=== PATIENT | female | born 1955 | race Caucasian/White ===

== ENCOUNTER 2019-06-06 09:10 | Outpatient (CLI) | payer MEDICARE, SELFPAY ==
[2019-06-06 10:36] LABS: Hemoglobin A1C 6.5 % (<5.7)
[2019-06-06 10:40] LABS: Alanine Aminotransferase 19 U/L (4-35); Albumin Level 4.4 g/dL (3.5-5.1); Alkaline Phosphatase 47 U/L (38-126); Aspartate Amino Transferase 21 U/L (14-36); Bilirubin,Total 0.3 mg/dL (0.2-1.3); Blood Urea Nitrogen 19 mg/dL (7-17); Calcium 9.3 mg/dL (8.4-10.2); Carbon Dioxide 30 mmol/L (22-30); Chloride 100 mmol/L (98-107); Cholesterol 253 mg/dL (0-200); Estimated Glomerular Filt Rate 50; Glucose 123 mg/dL (65-105); HDL Direct 47 mg/dL; Potassium 3.9 mmol/L (3.4-5.0); Sodium 139 mmol/L (137-145); Triglycerides 142 mg/dL (<150); Uric Acid 5.4 mg/dL (2.5-7.5)
[2019-06-06 10:50] LABS: LDL Cholesterol Direct 171 mg/dL
[2019-06-06 10:51] LABS: Creatinine Urine 122.5 mg/dL
[2019-06-06 11:09] LABS: Thyroid Stimulating Hormone 0.796 uIU/mL (0.465-4.680); Vitamin D 25 Hydroxy 48.5 ng/mL
[2019-06-06 11:20] LABS: MALB Creatinine Ratio < 4.9 mg/g (0-30); Microalbumin Urine Random < 6.0 mg/L (0-16.7)
== END 2019-06-06 09:11 | disposition home or self-care (01) ==
LOC: ANHLAB 09:15
PROVIDERS: PCP Nurse Practitioner Adult Health; Visit Provider Nurse Practitioner Adult Health
DX: E78.5 Hyperlipidemia, unspecified (principal); E55.9 Vitamin D deficiency, unspecified; E79.0 Hyperuricemia without signs of inflammatory arthritis and tophaceous disease; E11.9 Type 2 diabetes mellitus without complications; E07.9 Disorder of thyroid, unspecified
CPT/HCPCS: 36415; 80053; 80061; 82043; 82306; 83036; 84443; 84550

== ENCOUNTER 2019-09-09 09:43 | Outpatient (CLI) | payer MEDICARE, SELFPAY ==
[2019-09-09 10:37] LABS: Alanine Aminotransferase 19 U/L (4-35); Albumin Level 4.3 g/dL (3.5-5.1); Alkaline Phosphatase 45 U/L (38-126); Aspartate Amino Transferase 24 U/L (14-36); Bilirubin,Total 0.3 mg/dL (0.2-1.3); Blood Urea Nitrogen 17 mg/dL (7-17); Calcium 9.2 mg/dL (8.4-10.2); Carbon Dioxide 33 mmol/L (22-30); Chloride 102 mmol/L (98-107); Estimated Glomerular Filt Rate 45; Glucose 131 mg/dL (65-105); Potassium 3.7 mmol/L (3.4-5.0); Sodium 139 mmol/L (137-145)
[2019-09-09 10:51] LABS: Hemoglobin A1C 6.5 % (<5.7)
[2019-09-09 11:07] LABS: Thyroid Stimulating Hormone 0.971 uIU/mL (0.465-4.680)
== END 2019-09-09 09:44 | disposition home or self-care (01) ==
PROVIDERS: PCP Nurse Practitioner Adult Health; Visit Provider Nurse Practitioner Adult Health
DX: N18.9 Chronic kidney disease, unspecified (principal); E03.9 Hypothyroidism, unspecified; E11.9 Type 2 diabetes mellitus without complications
CPT/HCPCS: 36415; 80053; 83036; 84443

== ENCOUNTER 2020-01-06 09:19 | Outpatient (CLI) | payer MEDICARE, SELFPAY ==
[2020-01-06 09:52] LABS: Alanine Aminotransferase 17 U/L (4-35); Albumin Level 4.3 g/dL (3.5-5.1); Alkaline Phosphatase 42 U/L (38-126); Anion Gap 8 mmol/L (8-16); Aspartate Amino Transferase 23 U/L (14-36); Bilirubin,Total 0.3 mg/dL (0.2-1.3); Blood Urea Nitrogen 16 mg/dL (7-17); Calcium 9.1 mg/dL (8.4-10.2); Carbon Dioxide 33 mmol/L (22-30); Chloride 102 mmol/L (98-107); Cholesterol 260 mg/dL (0-200); Estimated Glomerular Filt Rate 45; Glucose 125 mg/dL (65-105); HDL Direct 42 mg/dL; Sodium 143 mmol/L (137-145); Triglycerides 195 mg/dL (<150); Uric Acid 6.2 mg/dL (2.5-7.5)
[2020-01-06 10:03] LABS: LDL Cholesterol Direct 167 mg/dL
[2020-01-06 10:22] LABS: Thyroid Stimulating Hormone 0.955 uIU/mL (0.465-4.680)
[2020-01-06 10:33] LABS: Vitamin D 25 Hydroxy 40.1 ng/mL
== END 2020-01-06 09:20 | disposition home or self-care (01) ==
PROVIDERS: PCP Nurse Practitioner Adult Health; Visit Provider Nurse Practitioner Adult Health
DX: E55.9 Vitamin D deficiency, unspecified (principal); E03.9 Hypothyroidism, unspecified; E79.0 Hyperuricemia without signs of inflammatory arthritis and tophaceous disease; E78.5 Hyperlipidemia, unspecified
CPT/HCPCS: 36415; 80048; 80061; 80076; 82306; 84443; 84550

== ENCOUNTER 2020-03-31 13:44 | Outpatient (CLI) | payer MEDICARE, SELFPAY ==
--- NOTE | ~2020-03-31 | US_ITS ---
EXAMINATION: US thyroid DATE: 03/31/2020 14:21 INDICATION: Nontoxic single thyroid nodule. TECHNIQUE: Multiple ultrasound images of the thyroid were obtained. COMPARISON: Ultrasound 01/26/2019 FINDINGS: The right thyroid lobe is absent The left thyroid lobe measures 6.4 x 3.3 x 2.9 cm. In the left thyr oid lobe, there is a 3.7 cm solid, hyperechoic, [id number] nodule with ill-defined margin withou t echogenic foci (TI-RADS TR3). IMPRESSION: 1. Stable left thyroid nodule. Ultrasound-guided FNA on 03/12/2019 demonstrated results consistent wit h benign follicular nodule. Reviewed, dictated and finalized at location A. DEVELOPER IMPRESSION: 1. Stable left thyroid nodule. Ultrasound-guided FNA on 03/12/2019 demonstrated results consistent with benign follicular nodule.
== END 2020-03-31 13:45 | disposition home or self-care (01) ==
PROVIDERS: PCP Nurse Practitioner Adult Health; Visit Provider Otolaryngology
DX: E04.1 Nontoxic single thyroid nodule (principal)
CPT/HCPCS: 76536

== ENCOUNTER 2020-10-21 11:31 | Outpatient (CLI) | payer MEDICARE, SELFPAY ==
[2020-10-21 12:19] LABS: Hemoglobin A1C 6.3 % (<5.7)
[2020-10-21 12:20] LABS: Alanine Aminotransferase 27 U/L (4-35); Albumin Level 4.4 g/dL (3.5-5.1); Alkaline Phosphatase 52 U/L (38-126); Anion Gap 8 mmol/L (8-16); Aspartate Amino Transferase 25 U/L (14-36); Bilirubin,Total 0.3 mg/dL (0.2-1.3); Blood Urea Nitrogen 16 mg/dL (7-17); Calcium 9.5 mg/dL (8.4-10.2); Carbon Dioxide 30 mmol/L (22-30); Chloride 100 mmol/L (98-107); Cholesterol 255 mg/dL (0-200); Estimated Glomerular Filt Rate 41; Glucose 122 mg/dL (65-105); HDL Direct 51 mg/dL; Potassium 3.8 mmol/L (3.4-5.0); Sodium 138 mmol/L (137-145); Triglycerides 128 mg/dL (<150)
[2020-10-21 12:31] LABS: LDL Cholesterol Direct 141 mg/dL
[2020-10-21 12:36] LABS: Creatinine Urine 111.8 mg/dL
[2020-10-21 12:51] LABS: Vitamin D 25 Hydroxy 44.6 ng/mL
[2020-10-21 13:29] LABS: MALB Creatinine Ratio < 5.4 mg/g (0-30); Microalbumin Urine Random < 6.0 mg/L (0-16.7)
== END 2020-10-21 11:32 | disposition home or self-care (01) ==
LOC: ANHLAB 11:38
PROVIDERS: PCP Nurse Practitioner Adult Health; Visit Provider Nurse Practitioner Adult Health
DX: R73.9 Hyperglycemia, unspecified (principal); I10 Essential (primary) hypertension; E78.5 Hyperlipidemia, unspecified; E79.0 Hyperuricemia without signs of inflammatory arthritis and tophaceous disease; E03.9 Hypothyroidism, unspecified; E55.9 Vitamin D deficiency, unspecified
CPT/HCPCS: 36415; 80048; 80061; 80076; 82043; 82306; 83036; 84443; 84550

== ENCOUNTER 2021-02-10 09:55 | Outpatient (RCR) | payer MEDICARE, SELFPAY | END 2021-02-10 23:59 | disposition home or self-care (01) | LOC: ANHAUDIO 09:55 | PROVIDERS: PCP Nurse Practitioner Adult Health; Visit Provider Nurse Practitioner Adult Health | DX: Z46.1 Encounter for fitting and adjustment of hearing aid (principal) | CPT/HCPCS: 92592 ==

== ENCOUNTER 2021-03-09 09:15 | Outpatient (CLI) | payer MEDICARE, SELFPAY ==
--- NOTE | ~2021-03-09 | US_ITS ---
EXAMINATION: US thyroid EXAM DATE: 03/09/2021 09:42 INDICATION: Nontoxic nodule. TECHNIQUE: Multiple grayscale and Doppler images of the thyroid were obtained (by a technologist who performed the scan) and subsequently reviewed. Individual nodules and recommendations may be reporte d in accordance with TI-RADS system as designated by the 2017 ACR White Paper TI-RADS committee. The re is no prior study for comparison. FINDINGS: Status post right thyroid lobectomy. Unremarkable thyroidectomy bed. Left thyroid lobe measures 6.3 x 3.3 x 3.5 cm, with a nodule in the lower pole measuring 4.2 x 4.0 x 3.2 cm. On previous exam one yea r ago dimensions of this nodule provided at 3.7 x 2.8 x 3.2 cm. Reportedly this was previously biopsi ed, with benign histology results. No new thyroid nodules identified. IMPRESSION: Mild increase in size of previously biopsied left thyroid lobe nodule. Reviewed, dictated and finalized at location A. RAFT MECHANIC IMPRESSION: Mild increase in size of previously biopsied left thyroid lobe mayo kumar
== END 2021-03-09 09:16 | disposition home or self-care (01) ==
LOC: ANHIMG 09:17
PROVIDERS: PCP Nurse Practitioner Adult Health; Visit Provider Otolaryngology
DX: E04.1 Nontoxic single thyroid nodule (principal); Z90.89 Acquired absence of other organs
CPT/HCPCS: 76536

== ENCOUNTER 2021-09-04 12:32 | Emergency (ER) | payer MEDICARE, SELFPAY ==
--- NOTE | ~2021-09-04 | XR_ITS ---
XR tibia fibula RT 2V DATE: 09/04/2021 13:03 INDICATION: Fall. Proximal medial lower leg pain, tenderness TECHNIQUE: AP and lateral views COMPARISON: None FINDINGS: No fracture or dislocation, periosteal reaction or bone destruction. Normal alignment and p reservation of joint space at the knee and ankle joints. IMPRESSION: Negative Reviewed, dictated and finalized at location A. IMPRESSION: Negative
--- NOTE | ~2021-09-04 | XR_ITS ---
XR ankle RT min 3V DATE: 09/04/2021 12:49 INDICATION: Fall, right lower leg and ankle injury, pain TECHNIQUE: 4 views COMPARISON: None FINDINGS: There is mild anterolateral soft tissue swelling of the right ankle. No fracture or dislocation of the ankle or disruption of the ankle mortise is detected. Plantar and posterior calcaneal enthesopathy. IMPRESSION: Mild soft tissue swelling; no ankle fracture or dislocation is detected Reviewed, dictated and finalized at location A. IMPRESSION: Mild soft tissue swelling; no ankle fracture or dislocation is dete cted
[2021-09-04 12:35] VITALS: BP 131/81; PULSE 102; RESP 18; TEMP 36.4; O2SAT 99
--- NOTE | 2021-09-04 12:54 | ED.GENADULT ---
HPI - General Adult General Chief complaint: Extremity Injury, Lower Stated complaint: right ankle injury Time Seen by Provider: 09/04/21 12:39 History of Present Illness HPI narrative: 65-year-old female presenting to the emergency department for evaluation of right ankle pain after having a ground-level fall yesterday. Patient states she was stepping off the curb and rolled her ankle. Patient states immediately she did have medial ankle pain. Patient states that she has been able to ambulate but has been walking on the outside of her foot. Patient states since the injury she has had worsening pain with ambulation. Patient denies striking head denies loss consciousness. Patient denies any neck or back pain. Patient states he does have some generalized muscle tenderness after the fall but denies any other specific injury. Related Data Allergies Allergy/AdvReac Type Severity Reaction Status Date / Time avocado Allergy Severe ANAPHYLAXIS Unverified 08/02/16 07:59 latex Allergy Severe ANAPHYLAXIS Unverified 08/02/16 07:59 3X hydrocodone Allergy Intermediate ITCHEY Unverified 08/02/16 07:59 Kiwi Allergy Severe ANAPHYLAXIS Uncoded 08/02/16 07:59 Review of Systems Review of Systems: CONSTITUTIONAL: Denies fever, chills, or sweats. EYES: Denies visual changes, redness, or discharge. ENT: Denies rhinorrhea, congestion, sore throat, or otalgia. CARDIOVASCULAR: Denies chest pain, palpitations, or edema. RESPIRATORY: Denies cough or dyspnea. GASTROINTESTINAL: Denies abdominal pain, nausea, vomiting, or diarrhea. GENITOURINARY: Denies dysuria or hematuria. SKIN: Denies rash or itching. MUSCULOSKELETAL: See HPI NEUROLOGIC: Denies headache, numbness, or weakness. All systems reviewed & are unremarkable except as noted in HPI and below Exam Narrative: APPEARANCE: Well appearing, no pain, no distress, well-nourished. HEAD: normocephalic, atraumatic. EYES: PERRLA/EOMI, conjunctivae clear. NOSE: Normal no drainage NECK: Supple. No adenopathy, no masses. No midline tenderness to palpation. Normal range of motion. RESPIRATORY: Airway patent, respirations nonlabored. Clear to auscultation bilaterally, no rales, rhonchi, wheezing. CARDIOVASCULAR: Regular rate and rhythm without murmurs rubs or gallops. MUSCULOSKELETAL: Tenderness to right medial ankle. Tenderness to proximal lower leg. No significant deformity, edema or ecchymosis. Distal pulses intact. NEURO: Alert. Cranial nerves II through XII intact. Grossly intact SKIN: Warm, dry. Normal Color Course Course Emergency Course: X-rays were negative for acute fracture or dislocation. Patient was updated on the results of the x-rays. Patient was provided an Carlos wrap and was offered crutches. Patient declined the use of crutches. Patient was instructed to have close follow-up with her primary care physician additionally with orthopedics. All questions and concerns were addressed. Vital Signs Vital signs: Vital Signs Temperature 97.5 F L 09/04/21 12:35 Pulse Rate 102 H 09/04/21 12:35 Respiratory Rate 18 09/04/21 12:35 Blood Pressure 131/81 09/04/21 12:35 Pulse Oximetry 99 09/04/21 12:35 Oxygen Delivery Room Air 09/04/21 12:35 Temperature 97.5 F L 09/04/21 12:35 Pulse Rate 102 H 09/04/21 12:35 Respiratory Rate 18 09/04/21 12:35 Blood Pressure 131/81 09/04/21 12:35 Pulse Oximetry 99 09/04/21 12:35 Oxygen Delivery Room Air 09/04/21 12:35 Medical Decision Making Vital Signs Vital Signs: Vital Signs Temperature 97.5 F L 09/04/21 12:35 Pulse Rate 102 H 09/04/21 12:35 Respiratory Rate 18 09/04/21 12:35 Blood Pressure 131/81 09/04/21 12:35 Pulse Oximetry 99 09/04/21 12:35 Oxygen Delivery Room Air 09/04/21 12:35 Temperature 97.5 F L 09/04/21 12:35 Pulse Rate 102 H 09/04/21 12:35 Respiratory Rate 18 09/04/21 12:35 Blood Pressure 131/81 09/04/21 12:35 Pulse Oximetry 99 09/04/21 12:35 Oxygen Delivery Room A
== END 2021-09-04 13:47 | disposition home or self-care (01) ==
PROVIDERS: Emergency Provider Emergency Medicine
DX: S93.401A Sprain of unspecified ligament of right ankle, initial encounter (principal); W17.89XA Other fall from one level to another, initial encounter
CPT/HCPCS: 73590; 73610; 99283

== ENCOUNTER → 2022-05-02 14:23 | Outpatient (CLI) | payer MEDICARE, SELFPAY ==
--- NOTE | ~2022-05-02 | US_ITS ---
EXAMINATION: US thyroid DATE: 05/02/2022 14:41 INDICATION: Nontoxic single thyroid nodule. TECHNIQUE: Multiple ultrasound images of the thyroid were obtained. COMPARISON: Thyroid ultrasound 03/09/2021, 03/12/19, 01/30/19 FINDINGS: The right thyroid lobe is absent. The left thyroid lobe measures 6.6 x 3.1 x 2.6 cm. In the left thy roid lobe, there is a 4.0 x 2.7 x 4.0 cm solid, isoechoic, wider than tall nodule with ill-defined ma rgin without echogenic foci (TI-RADS TR3), which measured 3.2 x 2.6 x 3.2 cm on 01/30/19. Biopsy on 05/13/18 was benign. IMPRESSION: 1. Left thyroid nodule with increase in size from 01/30/2019 and benign biopsy in 03/12/2019. Consider repeat ultrasound-guided fine-needle aspiration. Reviewed, dictated and finalized at location A. ING MACHINE OPERATOR
== END ==
PROVIDERS: Visit Provider Otolaryngology
DX: E04.1 Nontoxic single thyroid nodule (principal)
CPT/HCPCS: 76536

== ENCOUNTER 2022-07-20 11:50 | Observation (INO) | payer MEDICARE, SELFPAY ==
--- NOTE | ~2022-07-20 | CT_ITS ---
EXAMINATION: CTA chest PE protocol DATE: 07/20/2022 15:08 INDICATION: Chest pain and shortness of breath. TECHNIQUE: Computed tomography angiography (CTA) of the chest was performed with 100 mL Omnipaque-350 intravenous contrast timed to evaluate the pulmonary arteries. Coronal maximum intensity projection 3D-reconstructions were created by the technologist. Automated exposure control and iterative reconst ruction technique were employed. The dose-length product was 463.21 mGy-cm. COMPARISON: None. FINDINGS: The lungs demonstrate mild atelectasis. No pleural effusion. There are changes of thyroidec keke. There is a 4.4 x 4.2 x 3.6 cm mass involving the left thyroidectomy bed and overlying subcutane ous fat, consistent with hematoma and surgical change. There are bilateral breast implants with intra capsular ruptures. The heart size is normal. No pericardial effusion. There is no pulmonary embolus. There is a small sliding hiatal hernia. There are changes of cholecystectomy. There is moderate atrop hy of right kidney. There is moderate thoracic spondylosis. IMPRESSION: 1. No pulmonary embolus. 2. Surgical changes from recent thyroidectomy. Reviewed, dictated and finalized at location A.
--- NOTE | ~2022-07-20 | XR_ITS ---
EXAMINATION: XR chest 2V 07/20/2022 12:42 INDICATION: Shortness of breath. History of asthma. PROCEDURE: 2 view chest COMPARISON: Comparison to multiple prior studies sequentially, with oldest reviewed study dated 06/2013. FINDINGS: The lungs are clear. The cardiomediastinal silhouette is within normal limits. There are no pleural effusions. There is no pneumothorax suspected. IMPRESSION: 1: NO ACUTE CARDIOPULMONARY DISEASE. Reviewed, dictated and finalized at location L.
--- NOTE | ~2022-07-20 | CT_ITS ---
EXAMINATION: CT abdomen pelvis wo con DATE: 07/21/2022 10:23 INDICATION: Adrenal mass. TECHNIQUE: Computed tomography (CT) of the abdomen and pelvis was performed without intravenous contr ast. Automated exposure control and iterative reconstruction technique were employed. The dose-length product was 580.63 mGy-cm. COMPARISON: Chest CT 07/20/22, CT abdomen and pelvis 07/27/2016 FINDINGS: The visualized portions of the lung bases demonstrate mild atelectasis. There is mild scarr ing in paraspinal right lower lobe. No pleural effusion. The heart size is normal. No pericardial eff usion. Partially visualized are bilateral breast implants. There is a small sliding hiatal hernia. Th ere is diffuse hepatic steatosis. There are changes of cholecystectomy. The spleen, pancreas, adrenal glands, and left kidney are normal. There is moderate atrophy of right kidney. There is no urolithia sis. There are no dilated loops of bowel. The appendix is not visualized. There are no pathologically enlarged lymph nodes. There is no free intraperitoneal fluid. There is mild aortic atherosclerosis. There is moderate lumbar spondylosis. IMPRESSION: 1. Normal adrenal glands. 2. Moderate atrophy of right kidney. 3. Diffuse hepatic steatosis. Reviewed, dictated and finalized at location A.
--- NOTE | 2022-07-20 11:57 | ECG_ITS ---
Measurements Intervals [place] Rate: 78 P: 22 CO: 121 QRS: 28 QRSD: 77 T: 64 QT: 373 QTc: 427 Interpretive Statements SINUS RHYTHM NONSPECIFIC T-WAVE ABNORMALITY BORDERLINE ECG NO PREVIOUS ECG AVAILABLE FOR COMPARISON Electronically Signed On 07-21-2022 16:22:27 CDT by Sebastián Winters M.D.
[2022-07-20 12:01] VITALS: BP 143/82; PULSE 87; RESP 16; TEMP 36.6; O2SAT 99
[2022-07-20 12:24] LABS: Basophils Percent Auto 0.3 % (0.2-1.2); Eosinophils Absolute Auto 0.3 K/mm3 (0-0.3); Eosinophils Percent Auto 2.2 % (0-4.4); Hematocrit 40.5 % (37.0-47.0); Hemoglobin 13.2 g/dL (12.0-15.0); Immature Granulocyte Absolute 0.06 K/mm3 (0.00-0.031); Immature Granulocyte Percent A 0.5 % (0-0.5); Lymphocytes Absolute Auto 3.22 K/mm3 (0.9-3.2); Lymphocytes Percent Auto 24.7 % (18.3-44.2); Mean Corpuscular HGB Conc 32.6 g/dl (32-36); Mean Corpuscular Hemoglobin 31.2 pg (26-34); Mean Corpuscular Volume 95.7 fl (80-100); Monocytes Absolute Auto 0.9 K/mm3 (0.1-0.6); Monocytes Percent Auto 6.5 % (2.6-8.5); Neutrophils Absolute Auto 8.6 K/mm3 (1.3-6.7); Neutrophils Percent Auto 65.8 % (45.5-73.1); Platelet Count Result 359 k/mm3 (150-375); Red Blood Count 4.23 M/mm3 (4.2-5.4); Red Cell Distribution Width 13.7 % (11.5-14.5)
[2022-07-20 12:38] LABS: Alanine Aminotransferase 24 U/L (6-35); Albumin Level 4.5 g/dL (3.5-5.1); Alkaline Phosphatase 80 U/L (38-126); Anion Gap 5 mmol/L (8-16); Aspartate Amino Transferase 26 U/L (14-36); Bilirubin,Total 0.5 mg/dL (0.2-1.3); Blood Urea Nitrogen 15 mg/dL (7-17); Calcium 9.1 mg/dL (8.4-10.2); Carbon Dioxide 33 mmol/L (22-30); Chloride 101 mmol/L (98-107); Estimated CRCL calculation 47 ml/min; Estimated Glomerular Filt Rate 49; Glucose 107 mg/dL (65-110); Potassium 3.7 mmol/L (3.4-5.0); Sodium 139 mmol/L (137-145)
--- NOTE | 2022-07-20 14:10 | ED.SOB ---
HPI - SOB/Dyspnea General Chief Complaint: Shortness of Breath/Dyspnea <Kavita Champagne PA-C - Last Filed: 07/20/22 17:50> Stated Complaint: postop SOB <Kavita Champagne PA-C - Last Filed: 07/20/22 17:50> Time Seen by Provider: 07/20/22 13:58 <Kavita Champagne PA-C - Last Filed: 07/20/22 17:50> History of Present Illness HPI Narrative: Patient is a 66-year-old female with history of recent thyroidectomy at [facility], asthma, here due to shortness of breath over the past 2 days. Patient states that she has felt short of breath with minimal exertion and has had palpitations as well. She reports the chest tightness is present when she has the symptoms, resolved when she is at rest. She is never had symptoms like this before. Denies relief after her inhaler. States that she contacted her surgeon several days after surgery due to swelling around her throat, she has been on steroids which has since improved the swelling. <Kavita Champagne PA-C - Last Filed: 07/20/22 17:50> Related Data Allergies/Adverse Reactions: Allergies Allergy/AdvReac Type Severity Reaction Status Date / Time avocado Allergy Severe ANAPHYLAXIS Unverified 07/20/22 17:19 latex Allergy Severe ANAPHYLAXIS Unverified 07/20/22 17:19 3X hydrocodone Allergy Intermediate ITCHEY Unverified 07/20/22 17:19 Kiwi Allergy Severe ANAPHYLAXIS Uncoded 07/20/22 17:19 <Kavita Champagne PA-C - Last Filed: 07/20/22 17:50> Review of Systems Review of Systems: All systems reviewed & are unremarkable except as noted in HPI and below <Kavita Champagne PA-C - Last Filed: 07/20/22 17:50> [facility] Past Medical History Medical History: Medical History (Updated 07/20/22 @ 17:50 by Kavita Champagne PA-C) Gastroesophageal reflux disease Hyperlipidemia Hypertension Hypothyroidism Type 2 diabetes mellitus <Kavita Champagne PA-C - Last Filed: 07/20/22 17:50> Surgical History Surgical History: Surgical History (Updated 07/20/22 @ 17:37 by Tesha Bhatia PA-C) History of appendectomy History of breast augmentation History of section History of cholecystectomy History of esophageal dilatation History of esophagogastroduodenoscopy History of hysterectomy History of thyroidectomy <Kavita Chamapgne PA-C - Last Filed: 07/20/22 17:50> Family History Family History: Family History Mother Parkinson disease Father Intracranial hemorrhage <Kavita Champagne PA-C - Last Filed: 07/20/22 17:50> Social History Social History: Social History (Updated 07/20/22 @ 17:39 by Tesha Bhatia PA-C) Social History: Surrogate medical decision maker: Kei Shannon, spouse. Code status: Full code. Smoking status: Never smoker Alcohol intake: never Substance use: never Additional living arrangements comments: Lives with spouse in [place]. Additional occupation/education comments: Retired RN. <Kavita Champagne PA-C - Last Filed: 07/20/22 17:50> Exam Narrative: APPEARANCE: Well appearing, no pain in distress, well-nourished. Head: Normocephalic and atraumatic. EYES: PERRLA/EOMI, conjunctivae clear NOSE: No nasal drainage EARS: External ear normal in appearance THROAT: Oropharynx is clear. Mucous membranes are moist. NECK: well healing surgical scar to anterior neck. RESPIRATORY: Airway patent, respirations nonlabored. Clear to auscultation bilaterally, no rales, rhonchi, wheezing. CARDIOVASCULAR: Regular rate and rhythm without murmurs, rubs, or gallops. ABDOMINAL: Normoactive bowel sounds. Soft, nontender, nondistended. No rebound tenderness or guarding. MUSCULOSKELETAL: Extremities are warm and well-perfused. Moves all extremities well. No edema. NEURO: Normal speech. No focal neurologic deficits. SKIN: Skin is warm and dry. No rashes. PSYCH
[2022-07-20 14:15] VITALS: BP 158/95; PULSE 68; RESP 14; O2SAT 100
[2022-07-20 14:55] LABS: Phosphorus 3.1 mg/dL (2.5-4.5)
[2022-07-20 15:07] LABS: NT Pro B Type Natriuretic Pept 28 pg/mL (19.9-100); Troponin I < 0.012 ng/mL (0.000-0.034)
[2022-07-20 15:18] LABS: Influenza A QL RT-PCR Negative (Negative); Influenza B QL RT-PCR Negative (Negative); SARS-CoV-2 RNA PCR Negative
[2022-07-20 16:29] LABS: Troponin I < 0.012 ng/mL (0.000-0.034)
[2022-07-20] MEDS: ASPIRIN 81 MG CHEWABLE TABLET 324 MG PO (17:20)
--- NOTE | 2022-07-20 17:35 | PM.IMHP ---
H&P: HPI History of Present Illness Date/Time: 07/20/22 17:35 Chief Complaint: Chest pain. Narrative: This is a very pleasant 66-year-old female with hypertension, dyslipidemia, diabetes, and gastroesophageal reflux disease who presented to the emergency department from home for evaluation of chest pain. Patient provides the following history. She had a partial thyroidectomy done 9 days ago and she has been doing fairly well since that time. Over the weekend however she noticed that her heart rate was faster than usual according to her watch. The last 2 days she has been experiencing palpitations with sensations of racing heart and mid chest heaviness and shortness of breath with exertion. She has feelings of apprehension and impending doom, which is very unusual for her and she has never experienced anything like this previously. She does on occasion have flushing of the face as well as feelings of lightheadedness. The symptoms improve with rest however she still has feelings of apprehension and anxiety at rest. She denies syncope, fever, chills, sweats, pleuritic pain, orthopnea, paroxysmal nocturnal dyspnea, lower extremity edema, calf pain, nausea, vomiting, and diarrhea. She has not had any recent change in her medications, more specifically she has not had changes in her levothyroxine dose. She was started on steroids by her surgeon several days after her surgery due to swelling around the throat and incision site but that has since improved. Vital signs have been stable since arrival to the ED. Labs were significant for a WBC count of 13.0, normal electrolytes, creatinine of 1.10, normal TSH, undetectable troponin, and normal proBNP. She tested negative for influenza and COVID. CTA of the chest showed no pulmonary embolus. EKG showed sinus rhythm with some nonspecific T-wave changes. Given her risk factor she is being admitted overnight for close monitoring and Cardiology consultation. Review of Systems Review of Systems: Twelve systems were reviewed and are negative except for as per HPI. [facility] Past Medical History Medical History (Updated 07/20/22 @ 23:46 by Tesha Bhatia PA-C) Chronic kidney disease, stage 3 Gastroesophageal reflux disease Hyperlipidemia Hypertension Hypothyroidism Type 2 diabetes mellitus Surgical History Surgical History History of appendectomy History of breast augmentation History of section History of cholecystectomy History of esophageal dilatation History of esophagogastroduodenoscopy History of hysterectomy History of thyroidectomy Family History Family History Mother Parkinson disease Father Intracranial hemorrhage Social History Social History Social History: Surrogate medical decision maker: Kei Shannon, spouse. Code status: Full code. Smoking status: Never smoker Alcohol intake: current Substance use: never Substance use type: does not use Lack of Transportation: No Lack of Food: Never True Current Housing: I Do Not Have Housing Concerned About Future Housing: No Difficulty Paying Gas/Electric Bills: No Difficulty Paying for Meds: No Currently Unemployed: No Education: Bachelor's Degree Difficulty w/ Childcare or Family Care: No Additional living arrangements comments: Lives with spouse in [place]. Additional occupation/education comments: Retired RN. Spiritual care concerns: No Meds Home Medications and Allergies Home Medications Medication Instructions Recorded Confirmed Type acetaminophen 650 mg tablet 650 mg PO Q6H PRN Pain (Scale 07/20/22 07/20/22 History Score 1-3) ascorbic acid (vitamin C) 1,000 mg 1,000 mg PO DAILY 07/20/22 07/20/22 History tablet aspirin 81 mg tablet 81 mg PO DAILY 07/20/22 07/20/22 Histo
[2022-07-20 20:00] VITALS: BP 164/72; PULSE 82; RESP 19; O2SAT 98
[2022-07-20 20:13] LABS: Troponin I < 0.012 ng/mL (0.000-0.034)
--- NOTE | 2022-07-20 20:25 | ADMGEN ---
This patient, Nirali Shannon, was admitted to IMU Room 206-01. Patient/family oriented to hospital policies and general routines including ID bracelet, bed and alarms, visiting hours, pain management, procedures, bathroom and other care routines, personal items, smoking policy, room service/diet, and visiting hours. Information on how to activate the Rapid Response Team has been discussed. Patient/Family are encouraged to report perceived risks to care and to ask questions if they do not understand what they are told or what they should do.
[2022-07-20 20:49] VITALS: BP 156/97; PULSE 81; RESP 20; TEMP 36.3; O2SAT 99; BMI 29.2
[2022-07-20 22:00] VITALS: PULSE 96
[2022-07-20 23:33] VITALS: BP 142/60; PULSE 73; RESP 20; TEMP 36.3; O2SAT 98
[2022-07-21] VITALS (21 sets, daily range): BP systolic 123–150; BP diastolic 51–68; PULSE 59–80; RESP 16–22; TEMP 36.1–36.3; O2SAT 93–100
[2022-07-21] MEDS: OMEGA 3 POLYUNSAT FATTY ACIDS 1 GM CAP PO ×2 (00:49→20:29)
[2022-07-21] MEDS: MONTELUKAST SODIUM 10 MG TABLET PO ×2 (00:49→20:29)
[2022-07-21] MEDS: ALPRAZolam (*CRX) 0.25 MG TABLET PO (00:50)
[2022-07-21] MEDS: guaiFENesin 12 HR 600 MG TABCR PO ×3 (00:50→20:29)
[2022-07-21] MEDS: ACETAMINOPHEN 325 MG TABLET 650 MG PO ×3 (00:51→22:42)
[2022-07-21 04:54] LABS: Hematocrit 37.5 % (37.0-47.0); Hemoglobin 12.2 g/dL (12.0-15.0); Mean Corpuscular HGB Conc 32.5 g/dl (32-36); Mean Corpuscular Hemoglobin 30.6 pg (26-34); Platelet Count Result 327 k/mm3 (150-375); Red Blood Count 3.99 M/mm3 (4.2-5.4); Red Cell Distribution Width 13.5 % (11.5-14.5); White Blood Count 10.6 K/mm3 (4.5-10.0)
[2022-07-21 05:04] LABS: Anion Gap 7 mmol/L (8-16); Blood Urea Nitrogen 15 mg/dL (7-17); Calcium 8.8 mg/dL (8.4-10.2); Carbon Dioxide 32 mmol/L (22-30); Chloride 101 mmol/L (98-107); Estimated CRCL calculation 47 ml/min; Estimated Glomerular Filt Rate 49; Glucose 121 mg/dL (65-110); Potassium 3.6 mmol/L (3.4-5.0); Sodium 140 mmol/L (137-145)
[2022-07-21] MEDS: LEVOTHYROXINE SODIUM 50 MCG TABLET PO (05:42)
[2022-07-21 05:43] LABS: Hemoglobin A1C 6.5 % (<5.7)
[2022-07-21] MEDS: LEVALBUTEROL NEB 1.25 MG/3 ML INHALATION ×3 (07:10→22:22)
[2022-07-21] MEDS: IPRATROPIUM BR 0.02% INH SOLN 0.5 MG/2.5 ML VIAL INHALATION ×3 (07:15→22:22)
[2022-07-21] MEDS: FLUTICASONE/SALMETEROL 115-21 MCG INHALER 1 PUFF 2 PUFF INHALATION ×2 (07:15→22:23)
[2022-07-21] MEDS: FENOFIBRATE 160 MG TABLET PO (08:28)
[2022-07-21] MEDS: hydroCHLOROthiazide 12.5 MG CAPSULE PO (08:28)
[2022-07-21] MEDS: PANTOPRAZOLE 40 MG TABLET PO (08:29)
[2022-07-21] MEDS: ASPIRIN 81 MG ENTERIC TABLET PO (08:29)
[2022-07-21] MEDS: LOSARTAN POTASSIUM 100 MG TABLET PO (08:29)
[2022-07-21] MEDS: CALCIUM CARBONATE (OSCAL) 500 MG TABLET 1000 MG PO ×2 (08:29→17:37)
[2022-07-21] MEDS: ASCORBIC ACID 500 MG TABLET 1000 MG PO (08:29)
[2022-07-21] MEDS: FLUoxetine HCL 20 MG CAPSULE 40 MG PO (08:29)
[2022-07-21] MEDS: CHOLECALCIFEROL 1,000 UNITS TABLET 1000 UNITS PO (08:29)
[2022-07-21] MEDS: VITAMIN E 400 UNIT CAPSULE PO (08:30)
[2022-07-21 09:28] LABS: Glucose Point of Care 117 mg/dl (65-105)
--- NOTE | 2022-07-21 11:35 | PM.CNCAR ---
Assessment and Plan Assessment and plan (1) Chest pain: Code(s): R07.9 - Chest pain, unspecified Status: Acute Assessment and Plan: Atypical symptoms. She does not have any objective evidence of ACS; serial troponins negative and her EKG does not have any STTW changes concerning for ischemia. No indication for any further workup is an inpatient. However, patient does have risk factors for coronary artery disease, so would not be unreasonable to pursue stress testing as an outpatient. cardiology will sign off, plan for outpatient cardiology follow-up. (2) Hypertension: Code(s): I10 - Essential (primary) hypertension Status: Acute (3) Hyperlipidemia: Code(s): E78.5 - Hyperlipidemia, unspecified Status: Acute Assessment and Plan: unable to tolerate statin. (4) Type 2 diabetes mellitus: Code(s): E11.9 - Type 2 diabetes mellitus without complications Status: Acute Assessment and Plan: well controlled (5) Gastroesophageal reflux disease: Code(s): K21.9 - Gastro-esophageal reflux disease without esophagitis Status: Acute Assessment and Plan: Continue PPI (6) Shortness of breath: Code(s): R06.02 - Shortness of breath Status: Acute Assessment and Plan: has been noticing some shortness of breath for the past week. She does not have any evidence of CHF on exam. However, will check an echo. History of Present Illness History of Present Illness Consult date/time: 07/21/22 11:35 Requesting physician: Tesha Bhatia PA-C Consult reason: chest pain Reason For Visit: chest pain,sob Narrative: Ms. Shannon is a 66-year-old female who we are being asked to see because of chest pain. This is a patient with hypertension, dyslipidemia, type 2 diabetes, GERD, and recent thyroidectomy. She is presenting to the hospital with a chief complaint of dyspnea with exertion and chest pressure. She has noticed increasing dyspnea for the past week. She states she has began to need to take breaks when performing normal daily tasks because of shortness of breath. She has also had some pressure in her epigastric area that has been essentially constant over the past week but was more noticeable when she was walking around [place] with her yesterday. She has also noticed that her heart has been racing and her watch has notified her of a heart rate in the 130's at times. She denies any edema, syncope, orthopnea, paroxysmal nocturnal dyspnea. She is not experiencing any chest pain currently. Review of Systems Constitutional: Constitutional: Denies chills, Denies fever(s), Denies headache(s) and Denies malaise Eyes: Eyes: Denies change in vision ENT: Reports Normal hearing present, Denies dizziness, Denies headache(s) and Denies hearing loss Cardiovascular: Cardiovascular: Reports chest pain, Reports chest pain at rest, Denies chest pain with activity, Denies syncope, Denies pedal edema, Denies leg edema, Reports lightheadedness, Reports palpitations, Denies dyspnea and Reports dyspnea on exertion Respiratory: Respiratory: Denies cough, Reports dyspnea, Reports dyspnea on exertion and Denies wheezing Gastrointestinal: Gastrointestinal: Denies abdominal pain, Denies constipation and Denies diarrhea Genitourinary: Genitourinary: Denies hematuria and Denies dysuria Musculoskeletal: Musculoskeletal: Denies myalgias, Denies arthralgias and Denies muscle cramps Integumentary/Breasts: Skin/Breast: Denies wounds Neurologic: Reports Normal hearing present, Denies confusion, Denies dizziness, Denies syncope and Denies headache(s) Psychiatric: Psychiatric: Denies anxiety, Denies confusion and Denies depression Endocrine: Endocrine: Denies cold intolerance, Reports flushing, Denies heat intolerance and Reports palpitations Hematologic/Lymphatic: Hematologic/Lymphatic: Denies easy bleeding and Denies easy bruising Allergic/Immun
--- NOTE | 2022-07-21 15:19 | PM.IMPN ---
Progress Note: A&P Assessment and Plan (1) Chest pain: Code(s): R07.9 - Chest pain, unspecified Status: Acute Assessment and Plan: Patient reports exertional chest pressure and shortness of breath the last couple of days, improved with rest. EKG normal sinus rhythm troponin negative x3 Pulmonary embolism was ruled out. Cardiology has been consulted for their opinion. (2) Asthma: Code(s): J45.909 - Unspecified asthma, uncomplicated Status: Acute Assessment and Plan: Patient with history of asthma and takes Singulair daily and has nebulizers at home. Patient is having active shortness of breath with ambulation. Order DuoNebs Prednisone 40 mg once daily for 5 days. (3) Chronic kidney disease, stage 3: Code(s): N18.30 - Chronic kidney disease, stage 3 unspecified Status: Acute Assessment and Plan: Creatinine is stable on review of previous labs. (4) Left thyroid nodule: Code(s): E04.1 - Nontoxic single thyroid nodule Status: Acute Assessment and Plan: Status post partial thyroidectomy 9 days ago at [place]. She is still awaiting pathology. Surgical site looks good. Hematoma in postoperative changes noted on CTA of the chest. She denies shortness of breath and difficulty swallowing.0 Speech is clear. (5) Hypertension: Code(s): I10 - Essential (primary) hypertension Status: Acute Assessment and Plan: Blood pressures were reviewed and they have been running in the 140s 150 systolic. Continue antihypertensives and monitor. (6) Hyperlipidemia: Code(s): E78.5 - Hyperlipidemia, unspecified Status: Acute Assessment and Plan: Continue fenofibrate. (7) Type 2 diabetes mellitus: Code(s): E11.9 - Type 2 diabetes mellitus without complications Status: Acute Assessment and Plan: Random glucose was 107. Hold metformin as she received IV contrast. Initiate sliding scale insulin, Accu-Cheks, and hypoglycemic protocol. (8) Gastroesophageal reflux disease: Code(s): K21.9 - Gastro-esophageal reflux disease without esophagitis Status: Acute Assessment and Plan: No acute issues. Continue omeprazole. (9) Hypothyroidism: Code(s): E03.9 - Hypothyroidism, unspecified Status: Acute Assessment and Plan: Continue levothyroxine and check TSH. \ Plan Due to patient's diaphoresis and flushing, hypertension, and tachycardia CT abdomen pelvis performed to rule out pheochromocytoma. CT abdomen pelvis Showed diffuse hepatic steatosis, atrophy of the right kidney and normal adrenal glands Subjective Date/time seen: 07/21/22 15:19 Interval history: Patient lying with side. Patient states that she is comfortable at the moment but when she gets and starts walking she developed shortness of breath and a racing heart. Patient believes that she could possibly be an asthma exacerbation feel similar to faster patient's symptoms in the past. patient denies chest pain, nausea, vomiting, and diarrhea. Patient does have chronic cough that is productive sometimes. Review of Systems Review of Systems: All systems reviewed & are unremarkable except as noted in HPI and below Exam Narrative: GENERAL: Comfortable, no acute distress HENMT: moist mucous membranes EYES: EOM intact b/l NECK: no lymphadenopathy RESPIRATORY: clear to auscultation CARDIO: RRR GI: soft, nontender, bowel sounds present SKIN: no rashes EXTREMITIES: no edema, redness or tenderness Objective Data Vital Signs Vital Signs: Vital Signs - 24 hr 07/20/22 20:00 07/20/22 20:49 07/20/22 23:00 Temperature 97.3 F L Pulse Rate 82 81 Respiratory Rate 19 20 Blood Pressure 164/72 H 156/97 H Pulse Oximetry 98 99 Oxygen Delivery Room Air 07/20/22 23:33 07/20/22 22:00
[2022-07-21 17:05] LABS: Glucose Point of Care 118 mg/dl (65-105)
[2022-07-21 17:31] LABS: Glucose Point of Care 97 mg/dl (65-105)
[2022-07-21] MEDS: predniSONE 20 MG TABLET 40 MG PO (17:36)
[2022-07-21 20:13] LABS: Glucose Point of Care 144 mg/dl (65-105)
[2022-07-21] MEDS: WATER FOR IRRIGATION, STERILE 1,000 ML BOTTLE 1000 ML (22:30)
--- NOTE | 2022-07-21 23:48 | ECHO_ITS ---
Patient Info Name: Nirali Shannon Age: 66 years : 1955 Gender: Female Ht: 66 in Wt: 180 lbs BSA: 1.97 m2 HR: 60 bpm BP: 123 / 52 mmHg Heart Rhythm: Sinus Rhythm Technical Quality: Fair Exam Date: 07/21/2022 11:28 AM Exam Location: [facility] Patient Status: Inpatient Admit Date: 07/20/2022 Staff Ordering Physician: Tesha Bhatia PA-C [employer] Machine Operator: Ирина Berumen RDCS Attending Provider: Yasir Rand MD Referring Physician: Sriram YANG; Exam Type: CA echo doppler color flow Study Info Indications R07.9 - Chest pain, unspecified Complete two-dimensional, color flow and Doppler transthoracic echocardiogram is performed. Summary 1. Complete two-dimensional, color flow and Doppler transthoracic echocardiogram is performed. 2. Left ventricular chamber dimension is normal. 3. Left ventricular systolic function is normal, estimated at 65-70%. 4. There is mildly increased left ventricular wall thickness. 5. The left ventricular diastolic function is grade I diastolic dysfunction. 6. Right atrial chamber dimension is mildly enlarged. 7. There is no aortic valve stenosis. 8. There is trace mitral valve regurgitation. 9. There is trace tricuspid valve regurgitation. 10. No pulmonary hypertension, estimated pulmonary arterial systolic pressure is 34 mmHg. Left Ventricle Left ventricular chamber dimension is normal. Left ventricular systolic function is normal, estimated at 65-70%. There is mildly increased left ventricular wall thickness. The left ventricular diastolic function is grade I diastolic dysfunction. Right Ventricle Right ventricular chamber dimension is normal. Right ventricular systolic function is normal. Left Atria Left atrial chamber dimension is normal. Right Atria Right atrial chamber dimension is mildly enlarged. Aortic Valve The aortic valve is probable trileaflet. There is no aortic valve stenosis. There is no aortic valve regurgitation. Pulmonic Valve The pulmonic valve is not well visualized. Mitral Valve The mitral valve has thickened leaflets. There is trace mitral valve regurgitation. The mitral valve annulus is mildly calcified. Tricuspid Valve The tricuspid valve leaflets are normal. There is trace tricuspid valve regurgitation. No pulmonary hypertension, estimated pulmonary arterial systolic pressure is 34 mmHg. Pericardium/Pleural The pericardium appears epicardial fat pad. There is small pericardial effusion. Inferior Vena Cava Normal inferior vena cava with >50% collapse upon inspiration consistent with normal right atrial pressure, 5 mmHg. Aorta The aortic root size at the sinus of Valsalva is normal. There is mild aortic atherosclerosis. Left Ventricular Outflow Tract Name Value Normal LVOT 2D LVOT Diameter 2.0 cm LVOT Doppler LVOT Peak Gradient 5 mmHg LVOT Mean Gradient 2 mmHg LVOT VTI 19 cm LVOT VTI/AV VTI Ratio 0.8 LVOT Stroke Volume 58 ml
[2022-07-22] VITALS (11 sets, daily range): BP systolic 123–146; BP diastolic 64–68; PULSE 62–82; RESP 20; TEMP 36.2–36.4; O2SAT 96–99
[2022-07-22 05:42] LABS: Hematocrit 38.7 % (37.0-47.0); Hemoglobin 12.7 g/dL (12.0-15.0); Mean Corpuscular HGB Conc 32.8 g/dl (32-36); Mean Corpuscular Hemoglobin 30.5 pg (26-34); Mean Platelet Volume 9.3 fl (7.4-10.4); Platelet Count Result 372 k/mm3 (150-375); Red Blood Count 4.16 M/mm3 (4.2-5.4); Red Cell Distribution Width 13.4 % (11.5-14.5); White Blood Count 11.9 K/mm3 (4.5-10.0)
[2022-07-22 05:59] LABS: Alanine Aminotransferase 23 U/L (6-35); Albumin Level 4.2 g/dL (3.5-5.1); Alkaline Phosphatase 56 U/L (38-126); Anion Gap 10 mmol/L (8-16); Aspartate Amino Transferase 28 U/L (14-36); Bilirubin,Total 0.7 mg/dL (0.2-1.3); Blood Urea Nitrogen 19 mg/dL (7-17); Calcium 8.7 mg/dL (8.4-10.2); Carbon Dioxide 25 mmol/L (22-30); Chloride 100 mmol/L (98-107); Estimated CRCL calculation 47 ml/min; Estimated Glomerular Filt Rate 49; Glucose 174 mg/dL (65-110); Potassium 4.4 mmol/L (3.4-5.0); Sodium 135 mmol/L (137-145)
[2022-07-22] MEDS: LEVOTHYROXINE SODIUM 50 MCG TABLET PO (06:42)
[2022-07-22 08:01] LABS: Glucose Point of Care 127 mg/dl (65-105)
[2022-07-22] MEDS: CALCIUM CARBONATE (OSCAL) 500 MG TABLET 1000 MG PO (09:28)
[2022-07-22] MEDS: ASCORBIC ACID 500 MG TABLET 1000 MG PO (09:28)
[2022-07-22] MEDS: CHOLECALCIFEROL 1,000 UNITS TABLET 1000 UNITS PO (09:28)
[2022-07-22] MEDS: PANTOPRAZOLE 40 MG TABLET PO (09:29)
[2022-07-22] MEDS: FENOFIBRATE 160 MG TABLET PO (09:29)
[2022-07-22] MEDS: hydroCHLOROthiazide 12.5 MG CAPSULE PO (09:29)
[2022-07-22] MEDS: LOSARTAN POTASSIUM 100 MG TABLET PO (09:29)
[2022-07-22] MEDS: FLUoxetine HCL 20 MG CAPSULE 40 MG PO (09:29)
[2022-07-22] MEDS: predniSONE 20 MG TABLET 40 MG PO (09:29)
[2022-07-22] MEDS: guaiFENesin 12 HR 600 MG TABCR PO (09:30)
[2022-07-22] MEDS: ASPIRIN 81 MG ENTERIC TABLET PO (09:30)
[2022-07-22] MEDS: VITAMIN E 400 UNIT CAPSULE PO (09:30)
[2022-07-22] MEDS: LEVALBUTEROL NEB 1.25 MG/3 ML INHALATION (09:57)
[2022-07-22] MEDS: FLUTICASONE/SALMETEROL 115-21 MCG INHALER 1 PUFF 2 PUFF INHALATION (09:57)
[2022-07-22] MEDS: IPRATROPIUM BR 0.02% INH SOLN 0.5 MG/2.5 ML VIAL INHALATION (09:57)
[2022-07-22 10:55] LABS: Cortisol Random 5.13 ug/dL
[2022-07-22 11:36] LABS: Glucose Point of Care 154 mg/dl (65-105)
--- NOTE | 2022-07-22 11:59 | PM.DS ---
DS: Admitting Diagnosis Discharge Date 07/22/22 Admitting Diagnosis Chest pain DS: Discharge Diagnosis Discharge Diagnosis (1) Chest pain: Code(s): R07.9 - Chest pain, unspecified Status: Acute Assessment and Plan: Patient reports exertional chest pressure and shortness of breath the last couple of days, improved with rest. EKG normal sinus rhythm troponin negative x3 Pulmonary embolism was ruled out. Cardiology has been consulted for their opinion. and recommend outpatient stress test. (2) Asthma: Code(s): J45.909 - Unspecified asthma, uncomplicated Status: Acute Assessment and Plan: Patient with history of asthma and takes Singulair daily and has nebulizers at home. Patient is having active shortness of breath with ambulation. Order DuoNebs Prednisone 40 mg once daily for 5 days. (3) Chronic kidney disease, stage 3: Code(s): N18.30 - Chronic kidney disease, stage 3 unspecified Status: Acute Assessment and Plan: Creatinine is stable on review of previous labs. (4) Left thyroid nodule: Code(s): E04.1 - Nontoxic single thyroid nodule Status: Acute Assessment and Plan: Status post partial thyroidectomy 9 days ago at [place]. She is still awaiting pathology. Surgical site looks good. Hematoma in postoperative changes noted on CTA of the chest. She denies shortness of breath and difficulty swallowing.0 Speech is clear. (5) Hypertension: Code(s): I10 - Essential (primary) hypertension Status: Acute Assessment and Plan: Blood pressures were reviewed and they have been running in the 140s 150 systolic. Continue antihypertensives and monitor. (6) Hyperlipidemia: Code(s): E78.5 - Hyperlipidemia, unspecified Status: Acute Assessment and Plan: Continue fenofibrate. (7) Type 2 diabetes mellitus: Code(s): E11.9 - Type 2 diabetes mellitus without complications Status: Acute Assessment and Plan: Random glucose was 107. Hold metformin as she received IV contrast. Initiate sliding scale insulin, Accu-Cheks, and hypoglycemic protocol. (8) Gastroesophageal reflux disease: Code(s): K21.9 - Gastro-esophageal reflux disease without esophagitis Status: Acute Assessment and Plan: No acute issues. Continue omeprazole. (9) Hypothyroidism: Code(s): E03.9 - Hypothyroidism, unspecified Status: Acute Assessment and Plan: Continue levothyroxine and check TSH. \ Plan Due to patient's diaphoresis and flushing, hypertension, and tachycardia CT abdomen pelvis performed to rule out pheochromocytoma. CT abdomen pelvis Showed diffuse hepatic steatosis, atrophy of the right kidney and normal adrenal glands DS: Summary Hospital Course Reason for hospitalization: Chest pain Hospital Course: This is a 66-year-old female with hypertension, hyperlipidemia, diabetes and GERD presented to the ED on 07/20/2022 for evaluation of chest pain. Patient recently had thyroidectomy done 9 days ago and did have to have Medrol Dosepak due to swelling around incision site. Two days prior to ED presentation she had experienced palpitations, racing heart, chest heaviness and shortness of breath with exertion. Patient also describes feeling very fatigued and having some flushing of the face and feeling lightheaded during these episodes. Patient's symptoms do improve with rest. She does have a chronic cough due to her asthma. Labs revealed a elevated white blood cell count of 13, normal electrolytes, creatinine at baseline, normal TSH, troponins negative x3 and normal BNP. Patient's COVID and flu negative. CTA chest with no pulmonary embolism. EKG shows normal sinus rhythm with nonspecific T-wave changes. Cardiac consultation. Echocardiogram revealing EF of 65-70%, grade 1 diastolic
[2022-07-22] MEDS: AZITHROMYCIN 250 MG TABLET 500 MG PO (12:54)
== END 2022-07-22 12:05 | disposition home or self-care (01) ==
LOC: ANHED 17:50 → ANHIMU 07-22 12:02
PROVIDERS: Emergency Medicine; Internal Medicine Critical Care Medicine; Physician Assistant; Admitting Provider Family Medicine; Emergency Provider Physician Assistant; PCP Family Medicine; Visit Provider Internal Medicine
DX: R07.9 Chest pain, unspecified (principal); I12.9 Hypertensive chronic kidney disease with stage 1 through stage 4 chronic kidney disease, or unspecified chronic kidney disease; E11.22 Type 2 diabetes mellitus with diabetic chronic kidney disease; N18.30 Chronic kidney disease, stage 3 unspecified; E04.1 Nontoxic single thyroid nodule; E78.5 Hyperlipidemia, unspecified; K21.9 Gastro-esophageal reflux disease without esophagitis; R06.02 Shortness of breath; E89.0 Postprocedural hypothyroidism; R00.2 Palpitations; Z20.822 Contact with and (suspected) exposure to COVID-19; J98.11 Atelectasis; K44.9 Diaphragmatic hernia without obstruction or gangrene; M47.814 Spondylosis without myelopathy or radiculopathy, thoracic region; D72.829 Elevated white blood cell count, unspecified; F10.90 Alcohol use, unspecified, uncomplicated; Z79.1 Long term (current) use of non-steroidal anti-inflammatories (NSAID); Z79.51 Long term (current) use of inhaled steroids; Z79.84 Long term (current) use of oral hypoglycemic drugs; Z79.899 Other long term (current) drug therapy
CPT/HCPCS: 36415; 71046; 71275; 74176; 80048; 80053; 82533; 82948; 83036; 83735; 83880; 84100; 84443; 84484; 85025; 85027; 87636; 93005; 93306; 94640; 99285; A9270; G0378; J7512; Q9967

== ENCOUNTER → 2022-10-02 11:15 | Outpatient (CLI) | payer MEDICARE, SELFPAY ==
--- NOTE | ~2022-10-02 | MR_ITS ---
MRI of the right knee Clinical history: Pain Technique: Coronal proton density and proton density-weighted images, sagittal proton-density and T2 fat-sat images, and axial proton-density fat-saturated images were acquired. Findings: Anterior and posterior cruciate ligaments are intact. Medial collateral ligament and the la teral collateral complex are intact. Popliteus tendon is intact. Medial and lateral menisci are intact, without evidence of tear. There is extensive high-grade chondromalacia patella, especially the lateral patellar facet and apex. There is mild chondral malacia the femoral trochlea. Articular cartilage in the medial lateral nadira rtments demonstrate minimal thickening. There small tricompartmental osteophytes. Extensor mechanism is intact. Minimal joint effusion present. There are probable loose bodies posteri or to the PCL, measuring up to 5 mm in diameter each. 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 Mild degenerative change of the lateral and medial compartment. Small loose bodies at the posterior aspect of the joint, as above. Reviewed, dictated and finalized at [facility]. 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 Mil d degenerative change of the lateral and medial compartment. Small loose bodies at the posterior aspect of the joint, as above.
== END ==
PROVIDERS: PCP Family Medicine; Visit Provider Orthopaedic Surgery
DX: M25.561 Pain in right knee (principal); M25.461 Effusion, right knee; M23.41 Loose body in knee, right knee
CPT/HCPCS: 73721

== ENCOUNTER 2023-09-22 12:09 | Emergency (ER) | payer MEDICARE, SELFPAY ==
--- NOTE | 2023-09-22 12:28 | ED.FEMALEGU ---
HPI - Female Genitourinary General Chief complaint: Urogenital-Female Stated complaint: uti Time Seen by Provider: 09/22/23 12:35 Source: patient and RN notes reviewed Mode of arrival: ambulatory Limitations: no limitations History of Present Illness HPI Narrative: 67 y/o female with hx DM and HTN presented for c/o urinary pressure, frequency and urgency. Intermittently for about 2 weeks. States last night she felt more right lower abdominal pain, took AZO last night. Denies hematuria, nausea, vomiting, abdominal pain, flank pain, constipation, diarrhea, fevers or chills. Related Data Home Medications Medication Instructions Recorded Confirmed acetaminophen 650 mg tablet 650 mg PO Q6H PRN Pain (Scale 07/20/22 09/22/23 Score 1-3) aspirin 81 mg tablet 81 mg PO DAILY 07/20/22 09/22/23 calcium carbonate 1,000 mg tablet 1,250 mg PO BID 07/20/22 09/22/23 cholecalciferol (vitamin D3) 25 25 mcg PO DAILY 07/20/22 09/22/23 mcg (1,000 unit) tablet (Vitamin D3) epinephrine 0.3 mg/0.3 mL 0.3 ml IM ONCE 07/20/22 09/22/23 injection, auto-injector fenofibrate 160 mg tablet 160 mg PO DAILY 07/20/22 09/22/23 fluoxetine 40 mg capsule 40 mg PO DAILY 07/20/22 09/22/23 losartan 100 1 tablet PO DAILY 07/20/22 09/22/23 mg-hydrochlorothiazide 12.5 mg tablet metformin 500 mg tablet,extended 500 mg PO QAM 07/20/22 09/22/23 release 24 hr montelukast 10 mg tablet 10 mg PO HS 07/20/22 09/22/23 omega 7-fra-rbi-fish oil 300 1 cap PO HS 07/20/22 09/22/23 mg-1,000 mg capsule (Fish Oil) omeprazole 20 mg capsule,delayed 20 mg PO DAILY 07/20/22 09/22/23 release vitamin E 400 unit tablet 400 unit PO DAILY 07/20/22 09/22/23 levothyroxine 50 mcg tablet 100 mcg PO QAM 10/05/22 09/22/23 Allergies Allergy/AdvReac Type Severity Reaction Status Date / Time avocado Allergy Severe ANAPHYLAXIS Verified 09/22/23 12:25 kiwi Allergy Severe Anaphylaxis Verified 09/22/23 12:25 latex Allergy Severe ANAPHYLAXIS Verified 09/22/23 12:25 3X hydrocodone AdvReac Intermediate ITCHEY Verified 09/22/23 12:25 oxycodone AdvReac Itching Verified 09/22/23 12:25 Review of Systems Review of Systems: CONSTITUTIONAL: Denies body aches, fever, chills, or sweats. CARDIOVASCULAR: Denies chest pain, palpitations, or edema. RESPIRATORY: Denies cough or dyspnea. GASTROINTESTINAL: Denies abdominal pain, nausea, vomiting, or diarrhea. GENITOURINARY: Reports dysuria, frequency, urgency, denies hematuria, flank pain SKIN: Denies rash, itching, or wounds. MUSCULOSKELETAL: Denies back pain or myalgia. [facility] Past Medical History Medical History Chronic kidney disease, stage 3 Gastroesophageal reflux disease Hyperlipidemia Hypertension Hypothyroidism Type 2 diabetes mellitus Surgical History Surgical History History of appendectomy History of breast augmentation History of section History of cholecystectomy History of esophageal dilatation History of esophagogastroduodenoscopy History of hysterectomy History of thyroidectomy Family History Family History Mother Parkinson disease Father Intracranial hemorrhage Social History Social History Social History: Surrogate medical decision maker: Kei Shannon, spouse. Code status: Full code. Smoking status: Never smoker Alcohol intake: current Substance use: never Substance use type: does not use Lack of Transportation: No Lack of Food: Never True Current Housing: I Do Not Have Housing Concerned About Future Housing: No Difficulty Paying Gas/Electric Bills: No Difficulty Paying for Meds: No Currently Unemployed: No Education: Bachelor's Degree Difficulty w/ Childcare or Family Care: No Additional living arrangements co
[2023-09-22 12:40] VITALS: BP 146/75; PULSE 96; RESP 16; TEMP 36.2; O2SAT 98
== END 2023-09-22 12:51 | disposition home or self-care (01) ==
PROVIDERS: Emergency Provider Nurse Practitioner Family; PCP Family Medicine
DX: R30.0 Dysuria (principal); I12.9 Hypertensive chronic kidney disease with stage 1 through stage 4 chronic kidney disease, or unspecified chronic kidney disease; E11.22 Type 2 diabetes mellitus with diabetic chronic kidney disease; N18.30 Chronic kidney disease, stage 3 unspecified; Z79.84 Long term (current) use of oral hypoglycemic drugs; K21.9 Gastro-esophageal reflux disease without esophagitis; E78.5 Hyperlipidemia, unspecified; E89.0 Postprocedural hypothyroidism; Z79.82 Long term (current) use of aspirin
CPT/HCPCS: 81003; 87086; 99213; G0463